=== PATIENT | male | born 1990 | race African-American/Black ===

== ENCOUNTER 2023-04-07 03:00 | Emergency (ER) | payer SELFPAY ==
[2023-04-07] MEDS ORDERED: IBUPROFEN 400MG TABLET PO ONE (06:30)
[2023-04-07] MEDS ORDERED: TOPUD PO (06:54)
== END 2023-04-07 07:08 | disposition home or self-care (01) ==
LOC: ER 03:00
DX: M79.10 Myalgia, unspecified site (principal); H11.32 Conjunctival hemorrhage, left eye
CPT/HCPCS: 73562; 73630; 76512; 99284